=== PATIENT | male | born 1980 | race African-American/Black ===

== ENCOUNTER 2019-06-16 19:14 | Emergency (ER) | payer OTHER ==
[~2019-06-16] VITALS: Ht 180.3 cm; Wt 93.0 kg
[~2019-06-16 19:14] MED LIST: NKM; VICODIN 5-5001 EACH PO
--- NOTE | 2019-06-16 19:15 | NUR ---
ED Nurse Note: pt was BIBA from home due to CP x 30 min while drinking the water. Pt states this is his first time has chest pain. Pt is AO x 4times, VSS, on room air no distress. FAM seen Pt at bedside.
--- NOTE | 2019-06-16 19:16 | NUR ---
ED Nurse Note: EMT gave ASA 162, Nitro all 3 rounds 5 min appart.
--- NOTE | 2019-06-16 19:26 | Emergency Room Report ---
History of Present Illness General Chief Complaint: Chest Pain Source: Patient, EMS Present Illness HPI 38-year-old male with no sig pmhx, p/w chest pain for few hours. Chest pain started while he was at home resting. Localized to substernal area, no radiation to back or other areas, sharp in nature, gradual in onset, lasted several minutes until now. Occurred on both exertion / rest. Denies SOB. Worsened with deep inspiration. Denies palpitations, diaphoresis, n/v. This is the first occurrence of chest pain. Denies fever, chills, cough, abd pain, recent viral illness. Denies trauma. Denies cardiac history, smoking, or family history of cardiac disease at a young age. Denies history of PE/DVT, no recent surgeries, prolonged immobilzation, malignancy He denies any drug use for marijuana, denies any cocaine. Allergies: Coded Allergies: No Known Allergies (Unverified , 08/20/12) Patient History Past Medical History: see triage record Past Surgical History: none Pertinent Family History: none Reviewed Nursing Documentation: PMH: Agreed; PSxH: Agreed Nursing Documentation-PMH Past Medical History: No Stated History Review of Systems All Other Systems: negative except mentioned in HPI Physical Exam Vital Signs Date Time Temp Pulse Resp B/P (MAP) Pulse Ox O2 Delivery O2 Flow Rate FiO2 06/16/19 19:08 100.6 101 18 144/90 (108) 100 Room Air Sp02 EP Interpretation: reviewed, normal General Appearance: alert, GCS 15, non-toxic, mild distress Head: normocephalic, atraumatic Eyes: bilateral eye normal inspection, bilateral eye PERRL, bilateral eye EOMI ENT: normal ENT inspection, normal pharynx, normal voice, moist mucus membranes Neck: normal inspection, full range of motion, supple Respiratory: normal inspection, lungs clear, normal breath sounds, no respiratory distress, no retraction, no wheezing, speaking full sentences, chest symmetrical Cardiovascular #1: normal inspection, regular rate, rhythm, normal capillary refill Cardiovascular #2: 2+ radial (R), 2+ radial (L) Gastrointestinal: normal inspection, non tender, soft, non-distended, no guarding Genitourinary: no CVA tenderness Musculoskeletal: normal inspection, back normal, normal range of motion, non- tender Neurologic: normal inspection, alert, oriented x3, responsive, motor strength/ tone normal, sensory intact, normal gait, speech normal Psychiatric: normal inspection, judgement/insight normal, memory normal Medical Decision Making Diagnostic Impression: Primary Impression: Chest pain Additional Impression: Pneumonia ER Course 38-year-old male with no sig pmhx p/w chest pain DDX: Musculoskeletal CP/costochondritis vs. pneumothorax vs. gastritis/GERD PE less likely given history and physical examination, not hypoxic/tachycardic, no risk factors, PERC negative. ACS less likely given age/history Patient is not having tearing chest pain to the back to suggest aortic dissection Plan: Labs, EKG, CXR ER course: had fever, given tylenol abx for PNA Disposition: transfer to outside hospital 01/03 to insurance purposes Will d/W Dr Leugn Please note that this Emergency Department Report was dictated using [employer] technology software, occasionally this can lead to erroneous entry secondary to interpretation by the dictation equipment. EKG Diagnostic Results EP Interpretation: Yes Rate: normal Rhythm: NSR ST Segments: No acute changes ASA given to patient: Yes, by EMS Rhythm Strip EP Interpretation: Yes Rate: 96 Rhythm: NSR, no PVCs, no ectopy Chest X-ray CXR: Ordered: Yes 1 view Indication: Chest pain EP interpretation: Yes Interpretation: L lobe consolidation Impression: L pna Electronically signed by Selena Fajardo MD Laboratory Tests Test 06/16/19 19:25 White Blood Count 14.7 K/UL (4.8-10.8) H Red Blood Count 4.60 M/UL (4.70-6.10) L Hemoglobin 13.7 G/DL (14.2-18.0) L Hematocrit 39.4 % (42.0-52.0) L Mean Corpuscular Volume 86 FL (80-99) Mean Corpuscular Hemoglobin 29.7 PG (27.0-31.0) Mean Corpuscular Hemoglobin Concent 34.7 G/DL (32.0-36.0) Red Cell Distribution Width 10.8 % (11.6-14.8) L Platelet Count 190 K/UL (150-450) Mean Platelet Volume 7.5 FL (6.5-10.1) Neutrophils (%) (Auto) 70.3 % (45.0-75.0) Lymphocytes (%) (Auto) 15.0 % (20.0-45.0) L Monocytes (%) (Auto) 11.7 % (1.0-10.0) H Eosinophils (%) (Auto) 0.6 % (0.0-3.0) Basophils (%) (Auto) 2.4 % (0.0-2.0) H Urine Color Yellow Urine Appearance Clear Urine pH 6 (4.5-8.0) Urine Specific [place] 1.015 (1.005-1.035) Urine Protein 1+ (NEGATIVE) H Urine Glucose (UA) Negative (NEGATIVE) Urine Ketones 4+ (NEGATIVE) H Urine Blood 2+ (NEGATIVE) H Urine Nitrite Negative (NEGATIVE) Urine Bilirubin Negative (NEGATIVE) Urine Urobilinogen 4 MG/DL (0.0-1.0) H Urine Leukocyte Esterase Negative (NEGATIVE) Urine RBC 5-10 /HPF (0 - 0) H Urine WBC 0-2 /HPF (0 - 0) Urine Squamous Epithelial Cells None /LPF (NONE/OCC) Urine Bacteria Occasional /HPF (NONE) Urine Mucus Many /LPF (NONE/OCC) H Sodium Level 139 MMOL/L (136-145) Potassium Level 3.3 MMOL/L (3.5-5.1) L Chloride Level 104 MMOL/L (98-107) Carbon Dioxide Level 26 MMOL/L (21-32) Anion Gap 9 mmol/L (5-15) Blood Urea Nitrogen 12 mg/dL (7-18) Creatinine 1.1 MG/DL (0.55-1.30) Estimate Glomerular Filtration Rate > 60 mL/min (>60) Glucose Level 85 MG/DL (74-106) Calcium Level 8.4 MG/DL (8.5-10.1) L Total Bilirubin 0.8 MG/DL (0.2-1.0) Aspartate Amino Transferase (AST) 17 U/L (15-37) Alanine Aminotransferase (ALT) 17 U/L (12-78) Alkaline Phosphatase 61 U/L (46-116) Total Creatine Kinase 351 U/L (26-308) H Troponin I 0.000 ng/mL (0.000-0.056) Total Protein 6.5 G/DL (6.4-8.2) Albumin 3.3 G/DL (3.4-5.0) L Globulin 3.2 g/dL Albumin/Globulin Ratio 1.0 (1.0-2.7) Urine Opiates Screen Positive (NEGATIVE) H Urine Barbiturates Screen Negative (NEGATIVE) Phencyclidine (PCP) Screen Negative (NEGATIVE) Urine Amphetamines Screen Negative (NEGATIVE) Urine Benzodiazepines Screen Negative (NEGATIVE) Urine Cocaine Screen Negative (NEGATIVE) Urine Marijuana (THC) Screen Positive (NEGATIVE) H CT/MRI/US Diagnostic Results CT/MRI/US Diagnostic Results : Imaging Test Ordered: CTA CHEST Impression no PE, aorta normal Lingular consolidation c/w PNA Last Vital Signs Date Time Temp Pulse Resp B/P (MAP) Pulse Ox O2 Delivery O2 Flow Rate FiO2 06/16/19 19:08 100.6 101 18 144/90 (108) 100 Room Air Disposition: XFER [facility] Condition: Serious RetinoSelena M.D. Jun 16, 2019 19:26
[2019-06-16] MEDS ORDERED: Morphine Sulfate 4mg/ml Inj (IV USE ONLY) IVP ONE (19:30)
--- NOTE | 2019-06-16 19:30 | NUR ---
ED Nurse Note: Bolld sample sent to lab.
[2019-06-16 19:34] LABS: BASOPHILS % (AUTO) 2.4 % (0.0-2.0); EOSINOPHILS % (AUTO) 0.6 % (0.0-3.0); HEMATOCRIT 39.4 % (42.0-52.0); HEMOGLOBIN 13.7 G/DL (14.2-18.0); MEAN CORPUSCULAR VOLUME 86 FL (80-99); MONOCYTES % (AUTO) 11.7 % (1.0-10.0); NEUTROPHILS % (AUTO) 70.3 % (45.0-75.0); PLATELET COUNT 190 K/UL (150-450); RED CELL DISTRIBUTION WIDTH 10.8 % (11.6-14.8); WHITE BLOOD COUNT 14.7 K/UL (4.8-10.8)
[2019-06-16 19:39] VITALS: BP 117/70
--- NOTE | 2019-06-16 19:45 | NUR ---
ED Nurse Note: X ray at bedside.
[2019-06-16 19:59] LABS: ANION GAP 9 mmol/L (5-15); BLOOD UREA NITROGEN 12 mg/dL (7-18); CALCIUM 8.4 MG/DL (8.5-10.1); CARBON DIOXIDE 26 MMOL/L (21-32); CHLORIDE 104 MMOL/L (98-107); CREATININE 1.1 MG/DL (0.55-1.30); POTASSIUM 3.3 MMOL/L (3.5-5.1); SODIUM 139 MMOL/L (136-145)
[2019-06-16] MEDS ORDERED: Isovue-370 150ml vial INJ PRN (20:00)
[2019-06-16 20:04] LABS: ALANINE AMINOTRANSFERASE 17 U/L (12-78); ALBUMIN 3.3 G/DL (3.4-5.0); ALKALINE PHOSPHATASE 61 U/L (46-116); ASPARTATE AMINO TRANSFERASE 17 U/L (15-37); BILIRUBIN,TOTAL 0.8 MG/DL (0.2-1.0); CREATINE KINASE 351 U/L (26-308)
--- NOTE | 2019-06-16 20:21 | NUR ---
ED Nurse Note: Pt temp 101.2F
[2019-06-16 20:25] LABS: APPEARANCE,URINE CLEAR; BILIRUBIN, URINE NEGATIVE (NEGATIVE); GLUCOSE, URINE (UA) NEGATIVE (NEGATIVE); KETONES,URINE 4+ (NEGATIVE); LEUKOCYTE ESTERASE ,URINE NEGATIVE (NEGATIVE); NITRITE,URINE NEGATIVE (NEGATIVE); PH,URINE 6 (4.5-8.0); PROTEIN,URINE 1+ (NEGATIVE); UROBILINOGEN,URINE 4 MG/DL (0.0-1.0)
[2019-06-16 20:28] LABS: COLOR,URINE YELLOW
[2019-06-16] MEDS ORDERED: cefTRIAXone 1 GM in NS 55 ML IVPB ONE (20:30)
[2019-06-16] MEDS ORDERED: Azithromycin 500 MG in D5W 275 ML IVPB ONE (20:30)
--- NOTE | 2019-06-16 20:40 | NUR ---
ED Nurse Note: Pt went to CT scan.
--- NOTE | 2019-06-16 21:06 | NUR ---
ED Nurse Note: Recheck Temp 100.3F. Report ERMD.
--- NOTE | 2019-06-16 21:25 | NUR ---
ED Nurse Note: Knowing Pt will transfer to [facility], will ready to give report.
[2019-06-16 21:40] VITALS: BP 103/61
--- NOTE | 2019-06-16 21:40 | NUR ---
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 Temp 97.7F, report to FAM.
[2019-06-16 22:43] VITALS: BP 110/60
--- NOTE | 2019-06-16 22:44 | NUR ---
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 Pt is AO x 4times, VSS, on room air no distress. Report and belongings given to EMT Norris Calderon. Pt will arrive [facility] in 30 minutes.
[2019-06-16 22:45] VITALS: BP 110/60
--- NOTE | 2019-06-17 10:49 | Diagnostic Imaging Report ---
Indication: Chest pain Technique: Continuous helical transaxial imaging of the chest was obtained from the thoracic inlet to the upper abdomen during rapid intravenous contrast administration. Arterial phase of enhancement obtained. Coronal 2-D reformats were also obtained and maximum intensity projection images in multiple planes. Study obtained in a Siemens sensation [address] Automatic Exposure Control was utilized. Total Dose length Product (DLP): [address] Dose Index Volume (CTDIvol): 12.62 x 3, 25.25 x 2, 0.17 mGy Comparison: None Findings: The pulmonary artery is reasonably opacified showing no filling defects. The aorta also appears normal. The sternum appears clear. No pleural or pericardial effusion identified. There is no fluid in the mediastinum. Gynecomastia noted with the some glandular tissue noted in both breasts. There is a focus of consolidation in the lingula which is suspicious for pneumonia. Correlate clinically. The visualized part of the upper abdomen is unremarkable. IMPRESSION: Consolidation involving part of the lingula. Findings a likely due to pneumonia. Correlate clinically No evidence of pulmonary embolus. Gynecomastia Impression: No evidence of pulmonary embolus, aortic dissection or aneurysm. The CT scanner at [facility] is accredited by the [employer] and the scans are performed using dose optimization techniques as appropriate to a performed exam including Automatic Exposure control.
--- NOTE | 2019-06-17 14:13 | Diagnostic Imaging Report ---
Indication: Dyspnea Comparison: None A single view chest radiograph was obtained. Findings: There is a parenchymal density at the left lung base. Left hemidiaphragm is elevated. Heart size is borderline enlarged. Bones are unremarkable. IMPRESSION: Pneumonia versus atelectasis at the left lung base
--- NOTE | 2019-06-17 17:05 | Cardiology Report ---
APPROVED REPORT EKG Measurement Heart [id number] Normal sinus rhythm Nonspecific T wave abnormality Abnormal ECG
== END 2019-06-16 22:48 | disposition short-term general hospital (02) ==
LOC: EDBD 19:14 → EMR 20:21
DX: R07.9 Chest pain, unspecified (principal); J18.9 Pneumonia, unspecified organism
CPT/HCPCS: 36415; 71045; 71275; 80053; 80307; 81003; 82550; 84484; 85025; 93005; 96361; 96365; 96367; 96375; 99285; J0456; J0696; J2270; Q9967

== ENCOUNTER 2020-07-21 21:18 | Emergency (ER) | payer OTHER ==
[~2020-07-21] VITALS: Ht 180.3 cm; Wt 95.3 kg
--- NOTE | 2020-07-21 22:04 | Emergency Room Report ---
History of Present Illness General Chief Complaint: Neck Pain Source: Patient Present Illness HPI This a 39-year-old male with no past medical history. He presents with chief complaint of neck pain. Onset for last 3 3 months. No trauma. Pain is to the back of his neck. Worse when he moves. He said pain rating down his right arm. Most of the numbness is around the third fourth and fifth fingers. No fever chills. Pain is 8 out of 10. No weight loss. No fever chills. He said 3 days ago he had the pain while he was carrying and jug of water. This caused him to catch himself and twisted his leg and hit his left knee. Since then he is complaining of left knee pain also. Pain to the medial aspect. Worse with movement. Better with rest. No relief with ibuprofen. Allergies: Coded Allergies: No Known Allergies (Unverified , 08/20/12) COVID-19 Screening Contact w/high risk pt: No Experienced COVID-19 symptoms?: No COVID-19 Testing performed [employer]: No Patient History Past Medical History: see triage record, old chart reviewed Past Surgical History: none Pertinent Family History: none Social History: Denies: smoking Immunizations: other Reviewed Nursing Documentation: PMH: Agreed; PSxH: Agreed Nursing Documentation-PMH Past Medical History: No Stated History Review of Systems Eye: Denies: eye pain, blurred vision ENT: Denies: ear pain, nose congestion, throat swelling Respiratory: Denies: cough, shortness of breath Cardiovascular: Denies: chest pain, palpitations Gastrointestinal: Denies: abdominal pain, diarrhea, nausea, vomiting Musculoskeletal: Reports: joint pain; Denies: back pain Skin: Denies: rash Neurological: Denies: headache, numbness Endocrine: Denies: increased thirst, increased urine Hematologic/Lymphatic: Denies: easy bruising All Other Systems: negative except mentioned in HPI Physical Exam Vital Signs Date Time Temp Pulse Resp B/P (MAP) Pulse Ox O2 Delivery O2 Flow Rate FiO2 07/21/20 21:22 98.2 75 18 153/77 (102) 98 Room Air Vitals with high blood pressure Sp02 EP Interpretation: reviewed, normal General Appearance: well appearing, no apparent distress, alert Head: normocephalic, atraumatic Eyes: bilateral eye PERRL, bilateral eye EOMI ENT: hearing grossly normal, normal pharynx Neck: full range of motion, supple, no meningismus, tender - Mild tenderness around C7-T1 distribution. No step-off or anesthesia. Respiratory: chest non-tender, lungs clear, normal breath sounds Cardiovascular #1: regular rate, rhythm, no murmur Gastrointestinal: normal bowel sounds, non tender, no mass, no organomegaly, no bruit, non-distended Musculoskeletal: back normal, normal range of motion, gait/station normal, other - Left knee: Tenderness to the medial aspect. Knee is stable. Full range of motion. No effusion. Sensation normal. Psychiatric: mood/affect normal Medical Decision Making Diagnostic Impression: Primary Impression: Cervical radicular pain Additional Impression: Sprain of left knee Qualified Codes: S83.412A - Sprain of medial collateral ligament of left knee , initial encounter ER Course Patient presents with cervical radicular pain. Distribution around C8/T1 distribution. No evidence of cauda equina syndrome, spinal epidural abscess or neoplastic process. His knee pain is probably from contusion and sprain. He is walking without any problem. No deformity. Will discharge home. Other X-Ray Diagnostic Results Other X-Ray Diagnostic Results : X-Ray ordered: Left knee x-rays # of Views/Limited Vs Complete: 4 View Indication: Pain EP Interpretation: Yes Interpretation: no dislocation, no soft tissue swelling, no fractures Impression: No acute disease Electronically Signed by: Mauricio Pinzon MD Last Vital Signs Date Time Temp Pulse Resp B/P (MAP) Pulse Ox O2 Delivery O2 Flow Rate FiO2 07/21/20 21:22 98.2 75 18 153/77 (102) 98 Room Air Status: improved Disposition: HOME, SELF-CARE Condition: Stable Scripts Prednisone* (PREDNISONE*) 20 Mg Tablet 40 MG ORAL DAILY, #14 TAB Prov: Mauricio Pinzon MD 07/21/20 Ibuprofen* (MOTRIN*) 600 Mg Tablet 600 MG ORAL Q6H PRN for For Pain, #30 TAB 0 Refills Prov: Mauricio Pinzon MD 07/21/20 Hydrocodone/Acetaminophen 5-325* (HYDROCODONE/ACETAMINOPHEN 5-325*) 1 Each Tablet 1 TAB ORAL Q6H PRN for For Pain, #20 TAB 0 Refills Prov: Mauricio Pinzon MD 07/21/20 Additional Instructions: Follow-up with your doctor in 1 to 2 weeks. You will benefit from an MRI of your neck to look for degenerative disc disease or herniated disc. Return if symptoms worsen. Mauricio Pinzon MD Jul 21, 2020 22:04
[2020-07-21] MEDS ORDERED: HYDROcodone/Acetamin 5/325 tab ORAL ONE (22:15)
[2020-07-21] MEDS ORDERED: HYDROCODON-ACE1 EA15 ORAL (22:24)
[2020-07-21] MEDS ORDERED: IBUPROFEN600 M1 ORAL (22:24)
[2020-07-21] MEDS ORDERED: PREDNISONE20 MG ORAL (22:24)
[2020-07-21 22:30] VITALS: BP 129/74
[2020-07-21 22:35] VITALS: BP 129/74
--- NOTE | 2020-07-22 11:15 | Diagnostic Imaging Report ---
EXAM: X-RAY XRAY Knee 3v LT CLINICAL HISTORY: Trauma with knee pain. COMPARISON: None FINDINGS: Total of 3 views of the left knee were obtained. Alignment is anatomic. There is no fracture, bony lesions or erosions. Joint spaces are unremarkable. Surrounding soft tissue is normal. IMPRESSION: NO FRACTURE.
== END 2020-07-21 22:35 | disposition home or self-care (01) ==
LOC: EMR 21:35
DX: M54.12 Radiculopathy, cervical region (principal); S83.412A Sprain of medial collateral ligament of left knee, initial encounter; F17.200 Nicotine dependence, unspecified, uncomplicated; X50.1XXA Overexertion from prolonged static or awkward postures, initial encounter; Y93.01 Activity, walking, marching and hiking; Y92.9 Unspecified place or not applicable; Z79.1 Long term (current) use of non-steroidal anti-inflammatories (NSAID)
CPT/HCPCS: 73562; Z7502; 99283